=== PATIENT | male | born 1940 | race Caucasian/White ===

== ENCOUNTER 2024-04-16 06:19 | Day surgery (SDC) | payer MEDICARE, OTHER, SELFPAY ==
[2024-04-16] VITALS (7 sets, daily range): BP systolic 100–126; BP diastolic 59–81; BMI 36.5
== END 2024-04-16 13:19 | disposition home or self-care (01) ==
LOC: SDS 06:19
PROVIDERS: ATTENDING PHYSICIAN Internal Medicine
DX: C77.1 Secondary and unspecified malignant neoplasm of intrathoracic lymph nodes (principal); R91.1 Solitary pulmonary nodule; Z85.038 Personal history of other malignant neoplasm of large intestine
CPT/HCPCS: 31628; 31652; 88172; 88173; 88305; 71045; 87015; 87070; 87102; 87107; 87116; 87205; 88177; 88341; 88342